=== PATIENT | female | born 1995 | race American Indian/Alaskan Native ===

== ENCOUNTER 2017-10-08 21:48 | Emergency (ER) | payer MEDICAID ==
[2017-10-08 22:15] VITALS: PULSE 72; RESP 20; TEMP 98.6; O2SAT 100
[2017-10-08] MEDS ORDERED: Fluorescein 1 mg Ophthalmic Strip ONE (22:57)
[2017-10-08] MEDS ORDERED: Fluorescein 1 mg Ophthalmic Strip OD ONE (23:02)
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
== END 2017-10-08 23:29 | disposition home or self-care (01) ==
LOC: C.ER 21:48
DX: T15.01XA Foreign body in cornea, right eye, initial encounter (principal); Y09 Assault by unspecified means